=== PATIENT | male | born 1995 | race Two or more races ===

== ENCOUNTER 2020-07-18 20:47 | Emergency (ER) | payer OTHER, SELFPAY ==
[2020-07-18 21:31] VITALS: BP 123/73; PULSE 66; RESP 18; TEMP 37.3; O2SAT 99
[2020-07-18 22:25] VITALS: BMI 23.3
--- NOTE | 2020-07-18 23:08 | ED.URI ---
HPI - URI/Sore Throat General Chief Complaint: Upper Respiratory Symptoms Stated Complaint: Covid symptoms Time Seen by Provider: 07/18/20 20:57 Source: patient Mode of arrival: ambulatory Limitations: no limitations History of Present Illness HPI Narrative: 25-year-old male with past medical history of anxiety and depression, and tobacco dependence presents with several days of upper respiratory symptoms. Cough, congestion, headache, mild shortness of breath and malaise. Patient is requesting COVID-19 testing. MD elicited complaint: cough, rhinorrhea and nasal congestion Onset (ago): day(s) Consistency: constant Severity: mild Description of mucous: clear and watery Able to tolerate fluids by mouth: Yes Relieving factors: nothing Associated symptoms: myalgias, headache, nasal congestion and cough Treatments prior to arrival: none Related Data Allergies Allergy/AdvReac Type Severity Reaction Status Date / Time No Known Allergies Allergy Unverified 12/24/19 16:38 Review of Systems Review of Systems: Constitutional: Positive headache, positive malaise, No Fever, no Chills, no fatigue ENT/Mouth: No sore throat, positive runny nose Eyes: No Discharge Cardiovascular: No Chest Pain, No SOB Respiratory: Positive Cough, No Sputum, No Wheezing, positive Smoke Exposure, No Dyspnea Gastrointestinal: No Nausea, No Vomiting, No Diarrhea Genitourinary: no irregular bleeding, No Dysuria, No Urinary Frequency, No Hematuria, No Urinary Incontinence, No Urgency, No Flank Pain, Musculoskeletal: No Myalgia Skin: No rash Neuro: Positive Headache PMFSH Past Medical History Attestation statement: The following information was validated with the patient. Source: old records reviewed Medical History Anxiety and depression Insomnia Tobacco abuse Surgical History Hx of tonsillectomy Social History Social History Advance Directives: No Advance Directives Information Provided: No Physical Exam Vital Signs: Vital Signs: Last Vital Signs Temp 99.1 F 07/18/20 21:31 Pulse 66 07/18/20 21:31 Resp 18 07/18/20 21:31 BP 123/73 07/18/20 21:31 Pulse Ox 99 07/18/20 21:31 Body Mass Index 23.3 Appearance: Alert. Oriented X3. No acute distress. Eyes: Pupils equal, round and reactive to light. ENT: Pharynx normal. Neck: Normal inspection. Neck supple. CVS: Normal heart rate and rhythm. Pulses normal. Respiratory: No respiratory distress. Breath sounds normal. Abdomen: Soft and nontender. Skin: Skin warm and dry. Normal skin color. Normal skin turgor. Extremities: No lower extremity edema. Neuro: No motor deficit. No sensory deficit. Course Course Course Narrative: 25-year-old male with upper respiratory symptoms consistent with COVID-19 presents for testing. Patient positive for COVID-19. Plan of care is to discharge home with supportive measures. Patient verbalized understanding of and agrees to plan of care. MDM - URI/Sore Throat Differential Diagnosis Differential diagnosis: Likely upper respiratory infection, viral infection, bronchitis, influenza and pharyngitis Lab Data Attestation: I reviewed the patient's lab results. Labs: Lab Results 07/18/20 Range/Units 22:59 COVID-19 ([facility]) Positive A (Negative) COVID-19 Clin Com See Note Discharge Plan Discharge Clinical Impression: COVID-19 Patient Disposition: Home, Self-Care Instructions: COVID-19 (Coronavirus Disease 2019) (ED) Additional Instructions: You tested positive for COVID-19. Please maintain social isolation per State and Federal guidelines. It is your responsibility to maintain these guidelines. Please alternate Tylenol and Motrin as needed for pain management and fever control. If shortness of breath or symptoms worsen please return to the emergency department immediately for evaluation. Thank you for choosing this emergency department for evaluation. Please follow-up with primary care physician as needed. Return to the emergency department for any new, concerning, or worsening symptoms. Stand Alone Forms: Work/School Release Interventions: ED Discharge Assessment Last Done: 07/18/20 23:44 Discharge Date/Time: 07/18/20 23:36
[2020-07-18 23:18] LABS: COVID-19 Test Positive (Negative)
== END 2020-07-18 23:36 | disposition home or self-care (01) ==
PROVIDERS: Nurse Practitioner Family; Emergency Provider Emergency Medicine; PCP Internal Medicine
DX: U07.1 COVID-19 (principal); F17.210 Nicotine dependence, cigarettes, uncomplicated
CPT/HCPCS: 36415; 87635; 99283

== ENCOUNTER 2021-10-07 09:56 | Emergency (ER) | payer OTHER, SELFPAY ==
[2021-10-07 09:59] VITALS: BP 136/68; PULSE 100; RESP 19; TEMP 36.6; O2SAT 98; BMI 25.8
--- NOTE | 2021-10-07 10:39 | ED.GENADULT ---
HPI - General Adult General Chief complaint: Eye Problems Stated complaint: eye irritation/conjunctivitis? Time Seen by Provider: 10/07/21 10:39 Source: patient Mode of arrival: ambulatory Limitations: no limitations History of Present Illness HPI narrative: Patient is a 26 year old male presenting to the emergency department today with bilateral eye drainage. Patient states that starting yesterday, he noticed he was having greenish discharge coming from his eyes. Patient denies any dizziness, lightheadedness, abdominal pain, nausea, vomiting, fever, chills, blurry vision, double vision, loss of vision, chest pain, difficulty breathing, shortness of breath, back pain, night sweats, pain with urination, increased urinary frequency, increased urinary urgency, blood in his urine or stool, syncope or a near syncopal episode, recent trauma or falls, bowel incontinence, bladder incontinence, bowel retention, bladder retention, or any other complaints at this time. Onset (ago): day(s) (1) Location: eyes Radiation: non-radiation Severity: mild Severity scale (1-10): 1 Relieving factors: none Exacerbating factors: none Associated symptoms: denies other symptoms Treatments prior to arrival: none Related Data Previous Rx's Medication Instructions Recorded erythromycin 5 mg/gram (0.5 %) eye 0.5 inch ophthalmic (eye) QID 7 10/07/21 ointment days #3.5 grams Allergies Allergy/AdvReac Type Severity Reaction Status Date / Time No Known Allergies Allergy Unverified 12/24/19 16:38 Review of Systems Constitutional: Constitutional: Reports no additional constitutional complaints, Denies chills, Denies fever(s) and Denies night sweats Eyes: Eyes: Reports no additional eye complaints, Denies blurry vision, Denies change in vision, Denies diplopia, Reports eye discharge, Denies loss of vision and Denies eye pain ENT: Denies dizziness Cardiovascular: Cardiovascular: Reports no additional cardiovascular complaints, Denies chest pain, Denies lightheadedness, Denies Loss of Consciousness and Denies dyspnea Respiratory: Respiratory: Reports no additional respiratory complaints and Denies dyspnea Gastrointestinal: Gastrointestinal: Reports no additional gastrointestinal complaints, Denies abdominal pain, Denies melena, Denies hematochezia, Denies change in bowel habits and Denies change in stool character Genitourinary: Genitourinary: Reports no additional male genitourinary complaints, Denies hematuria, Denies oliguria, Denies difficulty urinating, Denies dysuria, Denies urinary frequency, Denies urinary hesitancy, Denies urinary incontinence and Denies urinary urgency Musculoskeletal: Musculoskeletal: Reports no additional musculoskeletal complaints, Denies numbness and Denies tingling Neurologic: Denies dizziness, Denies loss of vision, Denies numbness and Denies tingling Psychiatric: Psychiatric: Reports no additional psychiatric complaints Endocrine: Endocrine: Reports no additional endocrine complaints Hematologic/Lymphatic: Hematologic/Lymphatic: Reports no additional hematologic/lymphatic complaints Allergic/Immunologic: Allergic/Immunologic: Reports no additional allergic/immunologic complaints [facility] Past Medical History Attestation statement: The following information was validated with the patient. Source: old records reviewed Medical History Anxiety and depression Insomnia Tobacco abuse Surgical History Hx of tonsillectomy Social History Social History Alcohol intake: current Alcohol intake frequency: a few times a month Cigarettes Per Day: 3 Physical Exam ED Vital Signs: Vital Signs - 24 hr 10/07/21 09:59 Temperature 98 F Pulse Rate 100 Respiratory Rate 19 Blood Pressure 136/68 Pulse Oximetry 98 Oxygen Delivery Method Room Air BMI result Body Mass Index 25.8 Const General: cooperative, no acute distress, alert and awake Nutritional Appearance: well nourished Orientation/consciousness: patient oriented x3 Limitations: no limitations [facility] Head: Yes normal to inspection and Yes atraumatic Ears: hearing grossly normal bilaterally and external ears normal General nose exam: Normal external nose present, no nasal discharge noted and no epistaxis Face and sinus: Yes normal facial exam, No abrasion and No laceration Mouth: Normal oral and palatal mucosa present, no drooling and no muffled voice Eyes Periorbital: periorbital findings normal Eyelids: Yes eyelids normal Conjunctivae: conjunctival abnormal bilateral discharge Pupils: Equal, round and reactive pupils present EOM: EOMs intact bilaterally Neck Neck: Yes normal visual inspection, Yes full ROM and Yes no lymphadenopathy Chest Chest palpation & inspection: normal inspection of the chest Resp Effort & Inspection: normal respiratory effort and able to speak in complete sentences Auscultation: clear to auscultation bilaterally Cardio Rate: regular rate Rhythm: regular rhythm GI Inspection: Yes normal to inspection Neuro General: patient oriented x3 and moves all extremities Cranial nerves: Yes Equal, round and reactive pupils present Cognition (Neuro): normal cognition Motor exam (neuro): 5/5 motor strength present throughout Sensory Exam: Normal double simultaneous stimulation for sensation Coordination: [id number] test normal Extrem General: Yes normal to inspection, Yes full ROM and Yes capillary refill normal Psych Appearance: grossly normal Mental Status: mental status grossly normal Affect: normal affect Attitude: cooperative Thought process: Normal thought process present Thought content: Normal thought content present Insight: Good insight present (Psych) Medical Decision Making MDM Narrative Medical decision making narrative: Patient is a 26 year old male presenting to the emergency department today with eye discharge. Patient's physical exam showed yellow-green discharge from both eyes. I explained my physical exam findings to the patient. I answered all questions asked by the patient. I stressed the importance of the patient taking his medication as prescribed. I stressed the importance of the patient following up with his primary care provider. I stressed the importance of the patient returning to the emergency department immediately if his symptoms were to worsen or if he were to develop any dizziness, shortness of breath, difficulty breathing, chest pain, blurry vision, loss of vision, nausea, vomiting, abdominal pain, fever, chills, back pain, or any other complaints. Patient verbalized agreement and understanding with this treatment plan and discharge. Differential Diagnosis Differential Diagnosis: bacterial conjunctivitis Medical Records Medical records reviewed: Yes I reviewed the patient's medical records. Discharge Plan Discharge Clinical Impression: Bacterial conjunctivitis Patient Disposition: Home, Self-Care Instructions: Conjunctivitis (ED) Additional Instructions: Follow up with your primary care provider. Return to the emergency department immediately if your symptoms worsen or if you develop any dizziness, shortness of breath, difficulty breathing, chest pain, blurry vision, loss of vision, nausea, vomiting, abdominal pain, fever, chills, back pain, or any other complaints. Prescriptions: New erythromycin 5 mg/gram (0.5 %) ointment 0.5 inch ophthalmic (eye) QID 7 Days Qty: 3.5 0RF Referrals: Gagan Corbett MD [Primary Care Provider] - (Follow up with your PCP. ) Stand Alone Forms: Work/School Release Print Language: [place]
== END 2021-10-07 11:17 | disposition home or self-care (01) ==
PROVIDERS: Emergency Provider Emergency Medicine Emergency Medical Services; PCP Internal Medicine
DX: H10.89 Other conjunctivitis (principal)
CPT/HCPCS: 99282; 99283

== ENCOUNTER 2022-04-22 12:27 | Emergency (ER) | payer OTHER, SELFPAY ==
[2022-04-22 12:59] VITALS: BP 119/63; PULSE 67; RESP 16; TEMP 36.2; O2SAT 99; BMI 23.3
--- NOTE | 2022-04-22 13:02 | ED_ITS ---
HPI - General Adult General Chief complaint: Urogenital-Male <BREANNE Doyle - Last Filed: 04/22/22 18:25> Stated complaint: Genital discharge/itchiness <BREANNE Doyle - Last Filed: 04/22/22 18:25> Time Seen by Provider: 04/22/22 13:11 <BREANNE Doyle - Last Filed: 04/22/22 18:25> History of Present Illness HPI narrative: Patient complains of penile discharge for several days along with mild burning with urination, denies any sores or lesions no fever no vomiting no abdominal pain no rashes <BREANNE Vance - Last Filed: 04/28/22 13:53> Related Data Home medications: Previous Rx's Medication Instructions Recorded erythromycin 5 mg/gram (0.5 %) eye 0.5 inch ophthalmic (eye) QID 7 10/07/21 ointment days #3.5 grams doxycycline hyclate 100 mg capsule 100 mg PO BID 7 days #14 caps 04/22/22 <BREANNE Doyle - Last Filed: 04/22/22 18:25> Allergies/adverse reactions: Allergies Allergy/AdvReac Type Severity Reaction Status Date / Time No Known Allergies Allergy Verified 04/22/22 12:59 <BREANNE Doyle - Last Filed: 04/22/22 18:25> [facility] Past Medical History Source: nursing notes reviewed <BREANNE Vance - Last Filed: 04/28/22 13:53> Medical History: Medical History Anxiety and depression Insomnia Tobacco abuse <BREANNE Doyle - Last Filed: 04/22/22 18:25> Surgical History: Surgical History Hx of tonsillectomy <BREANNE Doyle - Last Filed: 04/22/22 18:25> Social History Social History: Social History Alcohol intake: current Alcohol intake frequency: a few times a month Cigarettes Per Day: 3 Advance Directives: No Advance Directives Information Provided: No <BREANNE Doyle - Last Filed: 04/22/22 18:25> Physical Exam ED Vital Signs: Vital Signs - 24 hr 04/22/22 12:59 Temperature 97.1 F Pulse Rate 67 Respiratory Rate 16 Blood Pressure 119/63 Pulse Oximetry 99 Oxygen Delivery Method Room Air BMI result Body Mass Index 23.3 <BREANNE Doyle - Last Filed: 04/22/22 18:25> Vital Signs - 24 hr 04/22/22 12:59 Temperature 97.1 F Pulse Rate 67 Respiratory Rate 16 Blood Pressure 119/63 Pulse Oximetry 99 Oxygen Delivery Method Room Air BMI result Body Mass Index 23.3 <BREANNE Vance - Last Filed: 04/28/22 13:53> Vital Signs - 24 hr 04/22/22 12:59 Temperature 97.1 F Pulse Rate 67 Respiratory Rate 16 Blood Pressure 119/63 Pulse Oximetry 99 Oxygen Delivery Method Room Air BMI result Body Mass Index 23.3 <BREANNE Willett - Last Filed: 04/24/22 14:36> General appearance no acute distress The eyes no redness or discharge The pharynx is clear no redness swelling or exudate Neck is supple Abdomen soft nontender Genital exam normal no lesions no discharge no testicular swelling no ulcerations Skin no rash <BREANNE Vance Last Filed: 04/28/22 13:53> Course Course Course Narrative: RME: 26 yold male presents to the ED for penile discharge descrbie as gree n and yellow. patient denies any abdominal pain, fever, chills, testicular pain, or penile lesions. uA and CTNG <BREANNE Doyle Last Filed: 04/22/22 18:25> RME: 26 yold male presents to the ED for penile discharge descrbie as green and yellow. patient denies any abdominal pain, fever, chills, testicular pain, or penile lesions. uA and CTNG Patient was treated Rocephin and Zithromax in the ER and was given a prescription for doxycycline as well for full treatment of likely gonorrhea or chlamydia, he is advised to informal partners refrain from sexual activity tool everyone is treated and and he is advised to follow with clinic to be evaluated for HIV and any further STD testing <BREANNE Vance Last Filed: 04/28/22 13:53> Reevaluation(s) Reevaluation #1: 04/24/22--patient positive for chlamydia, called and spoke with patient and made aware of results. <BREANNE Willett - Last Filed: 04/24/22 14:36> Medications Administered Discontinued Medications Generic Name Dose Route Start Last Admin Trade Name Jerelq PRN Reason Stop Dose Admin Azithromycin 1,000 mg 04/22/22 13:14 04/22/22 13:28 Azithromycin 500 Mg Tablet PO 04/22/22 13:15 1,000 mg ONCE ONE Administration Ceftriaxone Sodium 500 mg/ 0 mg 04/22/22 13:14 04/22/22 13:28 Lidocaine HCl 1 ml IM 04/22/22 13:15 1 kit ONCE ONE Administration <BREANNE Doyle - Last Filed: 04/22/22 18:25> Medications Administered Discontinued Medications Generic Name Dose Route Start Last Admin Trade Name Jerelq PRN Reason Stop Dose Admin Azithromycin 1,000 mg 04/22/22 13:14 04/22/22 13:28 Azithromycin 500 Mg Tablet PO 04/22/22 13:15 1,000 mg ONCE ONE Administration Ceftriaxone Sodium 500 mg/ 0 mg 04/22/22 13:14 04/22/22 13:28 Lidocaine HCl 1 ml IM 04/22/22 13:15 1 kit ONCE ONE Administration <BREANNE Vance - Last Filed: 04/28/22 13:53> Medications Administered Discontinued Medications Generic Name Dose Route Start Last Admin Trade Name Nila PRN Reason Stop Dose Admin Azithromycin 1,000 mg 04/22/22 13:14 04/22/22 13:28 Azithromycin 500 Mg Tablet PO 04/22/22 13:15 1,000 mg ONCE ONE Administration Ceftriaxone Sodium 500 mg/ 0 mg 04/22/22 13:14 04/22/22 13:28 Lidocaine HCl 1 ml IM 04/22/22 13:15 1 kit ONCE ONE Administration <BREANNE Willett - Last Filed: 04/24/22 14:36> Medical Decision Making Lab Data Labs: Lab Results 04/22/22 04/22/22 Range/Units 13:25 13:25 Urine Color Dark Yellow Urine Appearance Clear Urine pH 5.5 (5.0-9.0) Ur Specific [place] 1.020 (1.005-1.025) Urine Protein Negative (Neg-Trace) mg/dL Urine Glucose (UA) Negative (Negative) mg/dL Urine Ketones Negative (Negative) mg/dL Urine Blood Negative (Negative) Urine Nitrite Negative (Negative) Ur Leukocyte Esterase Small (1+) H (Negative) Urine RBC 0-2 (0-2) /HPF Urine WBC >50 H (0-5) /HPF Ur Squamous Epith Cells 0-2 (0-2) /HPF Urine Bacteria None Seen (None Seen) Hyaline Casts 0-2 (0-2) /LPF Chlam trachomat DNA PCR DETECTED A (Not Detect.) N.gonorrhoeae DNA (PCR) NOT DETECTED (Not Detect.) <BREANNE Doyle - Last Filed: 04/22/22 18:25> Lab Results 04/22/22 04/22/22 Range/Units 13:25 13:25 Urine Color Dark Yellow Urine Appearance Clear Urine pH 5.5 (5.0-9.0) Ur Specific [place] 1.020 (1.005-1.025) Urine Protein Negative (Neg-Trace) mg/dL Urine Glucose (UA) Negative (Negative) mg/dL Urine Ketones Negative (Negative) mg/dL Urine Blood Negative (Negative) Urine Nitrite Negative (Negative) Ur Leukocyte Esterase Small (1+) H (Negative) Urine RBC 0-2 (0-2) /HPF Urine WBC >50 H (0-5) /HPF Ur Squamous Epith Cells 0-2 (0-2) /HPF Urine Bacteria None Seen (None Seen) Hyaline Casts 0-2 (0-2) /LPF Chlam trachomat DNA PCR DETECTED A (Not Detect.) N.gonorrhoeae DNA (PCR) NOT DETECTED (Not Detect.) <BREANNE Vance - Last Filed: 04/28/22 13:53> Lab Results 04/22/22 04/22/22 Range/Units 13:25 13:25 Urine Color Dark Yellow Urine Appearance Clear Urine pH 5.5 (5.0-9.0) Ur Specific [place] 1.020 (1.005-1.025) Urine Protein Negative (Neg-Trace) mg/dL Urine Glucose (UA) Negative (Negative) mg/dL Urine Ketones Negative (Negative) mg/dL Urine Blood Negative (Negative) Urine Nitrite Negative (Negative) Ur Leukocyte Esterase Small (1+) H (Negative) Urine RBC 0-2 (0-2) /HPF Urine WBC >50 H (0-5) /HPF Ur Squamous Epith Cells 0-2 (0-2) /HPF Urine Bacteria None Seen (None Seen) Hyaline Casts 0-2 (0-2) /LPF Chlam trachomat DNA PCR DETECTED A (Not Detect.) N.gonorrhoeae DNA (PCR) NOT DETECTED (Not Detect.) <BREANNE Willett - Last Filed: 04/24/22 14:36> Discharge Plan Discharge Clinical Impression: Sexually transmitted disease <BREANNE Doyle - Last Filed: 04/22/22 18:25> Patient Disposition: Home, Self-Care <BREANNE Doyle - Last Filed: 04/22/22 18:25> Additional Instructions: We treated with Rocephin for possible gonorrhea You will take doxycycline for 1 week for possible chlamydia We will call you with the test results All partners should be treated for possible exposure, and no sexual activity until week after symptoms are gone and partners are treated and symptom free For further evaluation for possible STDs You can follow with [facility] <BREANNE Doyle - Last Filed: 04/22/22 18:25> Prescriptions: New doxycycline hyclate 100 mg capsule 100 mg PO BID 7 Days Qty: 14 0RF No Action erythromycin 5 mg/gram (0.5 %) ointment 0.5 inch ophthalmic (eye) QID 7 Days Qty: 3.5 0RF <BREANNE Doyle - Last Filed: 04/22/22 18:25> Interventions: ED Discharge Assessment Last Done: 04/22/22 14:34 <BREANNE Doyle - Last Filed: 04/22/22 18:25> Discharge Date/Time: 04/22/22 14:34 <BREANNE Doyle - Last Filed: 04/22/22 18:25>
[2022-04-22] MEDS: cefTRIAXone sodium 500 MG, Lidocaine HCl 1 % MPF 1 ML IM (13:28)
[2022-04-22] MEDS: Azithromycin 500 MG TABLET 1000 MG PO (13:28)
[2022-04-22 13:36] LABS: Appearance Urine Clear; Color Urine Dark Yellow; Glucose Urine UA Negative (Negative); Leukocyte Esterase Urine Small (1+) (Negative); Nitrite Urine Negative (Negative); PH 5.5 (5.0-9.0); UMIC TRIGGER UACC YES; Urine Blood Negative (Negative); Urine Ketones Negative (Negative); Urine Protein Negative (Neg-Trace)
[2022-04-22 13:38] LABS: Bacteria Urine None Seen (None Seen); Hyaline Casts Urine 0-2 /LPF (0-2); RBC Urine 0-2 /HPF (0-2); Squamous Epithelial Cell Urine 0-2 /HPF (0-2); UACC Culture Trigger YES; WBC Urine >50 /HPF (0-5)
[2022-04-22 15:12] LABS: CT PCR DETECTED (Not Detect.); NG PCR NOT DETECTED (Not Detect.)
== END 2022-04-22 14:34 | disposition home or self-care (01) ==
PROVIDERS: Physician Assistant; Emergency Provider Emergency Medicine; PCP Internal Medicine
DX: A56.8 Sexually transmitted chlamydial infection of other sites (principal); R30.0 Dysuria; Z79.899 Other long term (current) drug therapy
CPT/HCPCS: 0353U; 81001; 87086; 96374; 99282; 99284; J0696

== ENCOUNTER 2022-12-05 14:27 | Outpatient (AMB) | payer OTHER, SELFPAY ==
[2022-12-05 14:31] VITALS: BP 122/80; PULSE 64; O2SAT 100; BMI 25.3
--- NOTE | 2022-12-05 14:31 | A.OFFPC_ITS ---
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 Patient of Dr. Corbett, last visit 07/2020. Discharge diagnosis vasovagal syncope and head hematoma. Per ED notes, patient with no significant past medical history presented to the emergency department after syncopal episode. 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 Reports just prior to this he had a small cut on his knuckle. Denies chest pain, palpitations, shortness of breath, fever, chills, abdominal pain, vomiting. No family history of sudden cardiac arrhythmias. Reported a small hematoma on his posterior head, no complaints of neck pain. Point of care glucose was significant for hyperglycemia, patient did not eat breakfast that morning. EKG with sinus bradycardia, no other arrhythmia. Patient was discharged home and instructed to follow up with PCP. Glucose was 96. Today, patient denies any syncopal episodes, he reports when he did have posterior head hematoma he did have some headaches, this are improving. Denies shortness of breath or chest pain. Denies other concerns in the office. [facility] Medical History Anxiety and depression Insomnia Tobacco abuse Surgical History Hx of tonsillectomy Social History Housing: Apartment Alcohol intake: current Alcohol intake frequency: a few times a month Patient Tobacco Use Status: Never used Tobacco Cigarettes Per Day: 3 e-Cigarette/Vaping Use: Currently Using service: No Current occupational status: employed Cognitive needs: No Hearing needs: No Vision needs: No Questionnaire PHQ-9 Over the last 2 weeks, how often have you been bothered by any of the following problems? 1. Little interest or pleasure in doing things: not at all 2. Feeling down, depressed, or hopeless: not at all 3. Trouble falling or staying asleep, or sleeping too much: not at all 4. Feeling tired or having little energy: not at all 5. Poor appetite or overeating: not at all 6. Feeling bad about yourself - or that you are a failure or have let yourself or your family down: not at all 7. Trouble concentrating on things, such as reading the newspaper or watching television: not at all 8. Moving or speaking so slowly that other people could have noticed. Or the opposite - being so fidgety or restless that you have been moving around a lot more than usual: not at all 9. Thoughts that you would be better off or of hurting yourself in some way: not at all Total score: 0 Depression Screening Interpretation: Negative 25671 - PHQ-9 Billing: Yes Source: Developed by Drs. Carlitos Bro, Kylie Sterling, Matt Ruelas and colleagues, with an educational jewels from [employer]. Thrive Questionnaire Date Thrive assessed: 12/05/22 I am a: Patient What is your living situation today?: I have a steady place to live Within the past 12 months, did the food you bought not last and you didn't have the money to get more?: Never true Within the past 12 months, did you worry whether your food would run out before you got money to buy more?: Never true Do you have trouble paying for medicines?: No Do you have trouble getting transportation to medical appointments?: No Do you have trouble paying your heating and electricity bill?: No Do you have trouble taking care of your child, family member or friend?: No Do you have trouble with day-to-day activities such as bathing, preparing meals, shopping, managing finances, etc.?: No Are you currently unemployed and looking for a job?: No Are you interested in more education?: No Currently or been in a relationship where the following occur: no concerns repor noemí AUDIT C Alcohol Use Questionnaire (AUDIT-C) 1. How often do you have a drink containing alcohol?: Monthly or less 2. How many drinks containing alcohol do you have on a typical day when you are drinking?: 1 or 2 3. How often do you have six or more drinks on one occasion?: Never Total Score: 1 Score Reviewed/Action Taken: No CRUZ-7 AMB Questionnaire CRUZ-7 Date CRUZ - 7 assessed: 12/05/22 Feeling nervous, anxious, or on edge: 0 = Not at all Not being able to stop or control worryin = Not at all Worrying too much about different things: 0 = Not at all Trouble relaxin = Not at all Being so restless that it is hard to sit still: 0 = Not at all Becoming easily annoyed or irritable: 0 = Not at all Feeling afraid as if something awful might happen: 0 = Not at all Total CRUZ-7 score (0-4 normal; 5-9 mild; 10-14 moderate; 15-21 severe): 0 Source: Developed by Drs. Carlitos Bro, Kylie Sterling, Matt Ruelas and colleagues, with an educational jewels from [employer]. CRUZ-7 Assessment Billing CRUZ-7 Assessment Tool: CRUZ-7 Assessment 96153 Review of Systems Const Denies body aches, Denies chills, Denies fever(s) and Reports headache(s) (Intermittent) Eyes Denies change in vision ENT Denies dizziness, Denies otalgia, Reports headache(s) (Intermittent), Denies nasal discharge, Denies sinus pain and Denies sore throat Card Denies chest pain, Denies edema, Denies lightheadedness and Denies dyspnea Resp Denies cough, Denies dyspnea and Denies wheezing GI Denies abdominal pain Denies dysuria Musc Denies myalgias Skin/Breast Denies rash Neuro Denies dizziness and Reports headache(s) (Intermittent) Aller/Immun Denies wheezing Physical exam (Primary Care) Vital Signs: Last Vital Signs Pulse 64 12/05/22 14:31 BP 122/80 12/05/22 14:31 Pulse Ox 100 12/05/22 14:31 Oxygen Delivery Method Room Air 12/05/22 14:31 BMI result Body Mass Index 25.3 Tobacco/Smoking Status: Tobacco use Status Tobacco use date assessed 12/05/22 12/05/22 14:33 Patient Tobacco Use Status Never used Tobacco 12/05/22 14:33 e-Cigarette/Vaping Use Currently Using 12/05/22 14:39 PHQ-9: PHQ-9 Score PHQ-9: Total score 0 12/05/22 14:39 Depression Screening Interpretation: Negative Thrive Assessment: Date of Thrive Assessment Date Thrive assessed 12/05/22 12/05/22 14:33 Currently or been in a relationship where the following occur: no concerns reported Const General: cooperative and no acute distress Orientation/consciousness: patient oriented x3 HENMT Head: Yes normocephalic and Yes atraumatic Face and sinus: Yes sinuses nontender Mouth: oropharynx normal and moist mucous membranes Throat: Yes posterior oropharynx normal Eyes General: appearance normal, both eyes and all related structures Pupils: Equal, round and reactive pupils present EOM: EOMs intact bilaterally Neck Neck: Yes normal visual inspection, Yes full ROM and Yes no lymphadenopathy Resp Effort & Inspection: normal respiratory effort and able to speak in complete sentences Auscultation: clear to auscultation bilaterally, no crackles, no rales, no rhonchi and no wheezes Cardio Rate: regular rate Rhythm: regular rhythm Heart sounds: S1 normal heart sound present, S2 normal heart sound present and no murmurs GI Auscultation: normal bowel sounds Skin Other: Posterior head skin intact, nontender, no hematoma noted General skin exam: no rashes or lesions noted Neuro General: patient oriented x3 Cranial nerves: Yes Equal, round and reactive pupils present Gait exam (Neuro): Normal gait present Extrem General: Yes full ROM and No edema Assessment and Plan Assessment & Plan (1) Vasovagal syncope: Code(s): R55 - Syncope and collapse Plan: Patient denies any syncopal episodes since being discharged from emergency department 08/2022. Will order blood work to check for anemia also check sugar. Signs and symptoms reviewed when to notify provider or go to the emergency department. Patient agreed with the plan. Orders: Orders Comprehensive Met. Panel Today R55 - Syncope and collapse Complete Blood Count Auto Diff Today R55 - Syncope and collapse Coding Level of Care Code Est Pt Level 3 (87796) Diagnoses Vasovagal syncope R55 Additional Codes CRUZ-7 Assessment Billing - CRUZ-7 Assessment Tool: CRUZ-7 Assessment 46722 ([id number])
== END 2022-12-05 14:54 | disposition home or self-care (01) ==
PROVIDERS: PCP Internal Medicine; Visit Provider Nurse Practitioner Family
DX: R55 Syncope and collapse (principal)
CPT/HCPCS: 99213

== ENCOUNTER 2022-12-05 14:58 | Outpatient (REF) | payer OTHER, SELFPAY ==
[2022-12-05 15:08] LABS: MANUAL DIFF FLAG NO
[2022-12-05 15:43] LABS: Basophils Percent Auto 0.8 % (0-2); Eosinophils Absolute Auto 0.3 X10*3/uL (0.0-0.4); Eosinophils Percent Auto 6.4 % (0-4); Hematocrit 42.7 % (42.0-52.0); Hemoglobin 14.2 g/dl (14.0-18.0); Imm Gran Abs Auto 0.01 X10*3/uL (0.00-0.03); Imm Gran Pct Auto 0.2 % (0.0-0.4); Lymphocytes Absolute Auto 1.8 X10*3/uL (1.2-4.9); Mean Corpuscular HGB Conc 33.3 g/dl (31.0-36.0); Mean Corpuscular Hemoglobin 30.5 pg (27.0-33.0); Mean Corpuscular Volume 91.6 fL (80.0-98.0); Mean Platelet Volume 10.2 fL (9.4-12.4); Monocytes Absolute Auto 0.4 X10*3/uL (0.1-1.2); Monocytes Percent Auto 9.1 % (2-11); Neutrophils Absolute Auto 2.2 x10*3/uL (2.0-8.3); Neutrophils Percent Auto 45.5 % (45-73); Platelet Count 231 X10*3/uL (160-400); Red Blood Count 4.66 X10*6/uL (4.60-5.80); Red Cell Distribution Width 12.5 % (11.0-16.0); White Blood Count 4.8 X10*3/uL (4.8-10.8)
[2022-12-05 16:40] LABS: Alanine Aminotransferase 14 U/L (0-40); Albumin Level 4.2 g/dL (3.5-5.0); Alkaline Phosphatase 55 U/L (39-117); Anion Gap 11 (12-20); Aspartate Amino Transferase 14 U/L (5-37); Bilirubin Total 0.9 mg/dL (0.0-1.0); Blood Urea Nitrogen 12 mg/dL (9-16); Calcium 9.8 mg/dL (8.4-10.2); Carbon Dioxide 28 mmol/L (22-29); Chloride 104 mmol/L (96-108); Estimated Glomerular Filt Rate > 60; Glucose Random 74 mg/dL (60-115); Potassium 3.9 mmol/L (3.3-5.1); Sodium 139 mmol/L (135-145); Total Protein 6.7 g/dL (6.5-8.0)
== END 2022-12-05 14:59 | disposition home or self-care (01) ==
LOC: HO.LAB 14:58
PROVIDERS: PCP Internal Medicine; Visit Provider Nurse Practitioner Family
DX: R55 Syncope and collapse (principal)
CPT/HCPCS: 36415; 80053; 85025

== ENCOUNTER 2023-06-03 13:28 | Outpatient (AMB) | payer OTHER, SELFPAY ==
[2023-06-03 13:34] VITALS: BP 100/62; PULSE 72; O2SAT 98; BMI 24.6
--- NOTE | 2023-06-03 13:34 | MHC.PC.OV ---
Vital Signs 06/03/23 13:34 Height 5 ft 5 in Weight 148 lb BMI 24.6 BP 100/62 Blood Pressure Location Lt brachial Position Sitting Pulse 72 Pulse Source Pulse Oximeter Pulse Oximetry (%) 98 Oxygen Delivery Method Room Air Intake Visit Reasons: pe Prison Keeper Required: No Allergies No Known Allergies Allergy (Verified 06/03/23 13:34) Medication List - Last Reconciled 06/03/23 by Gagan Corbett MD No Known Home Meds Tobacco use date assessed: 06/03/23 Dental Screening Dental Screen Date: 06/03/23 Did you have a dental visit in the last 12 months?: No Did you have a dental problem in the last 6 months where you did not have access to dental care?: No HPI pe HPI Details 27-year-old male smoker with a history of anxiety depression coming in for physical exam. Patient was seen by the nurse practitioner in November 2022 after a fainting spell discharge diagnosis of vasovagal syncope with the head hematoma. vaping -complains of right hand numbness that radiates to the right arm and neck. [facility] Medical History Anxiety and depression Insomnia Tobacco abuse Surgical History Hx of tonsillectomy Social History (Updated 06/03/23 @ 14:15 by Gagan Corbett MD) Housing: Apartment Alcohol intake: current Alcohol intake frequency: a few times a month Comment: shot 1-2 a month Patient Tobacco Use Status: Never used Tobacco Years Smoked: VAPING e-Cigarette/Vaping Use: Currently Using service: No Current occupational status: employed Cognitive needs: No Hearing needs: No Vision needs: No Questionnaire PHQ-9 Over the last 2 weeks, how often have you been bothered by any of the following problems? 1. Little interest or pleasure in doing things: more than half the days 2. Feeling down, depressed, or hopeless: more than half the days 3. Trouble falling or staying asleep, or sleeping too much: several days 4. Feeling tired or having little energy: not at all 5. Poor appetite or overeating: several days 6. Feeling bad about yourself - or that you are a failure or have let yourself or your family down: not at all 7. Trouble concentrating on things, such as reading the newspaper or watching television: not at all 8. Moving or speaking so slowly that other people could have noticed. Or the opposite - being so fidgety or restless that you have been moving around a lot more than usual: not at all 9. Thoughts that you would be better off or of hurting yourself in some way: several days Total score: 7 Depression Screening Interpretation: Positive Depression Screening Done: Yes Source: Developed by Drs. Carlitos Bro, Kylie Sterling, Matt Ruelas and colleagues, with an educational jewels from [employer]. Thrive Questionnaire Date Thrive assessed: 06/03/23 I am a: Patient What is your living situation today?: I have a steady place to live Within the past 12 months, did the food you bought not last and you didn't have the money to get more?: Never true Within the past 12 months, did you worry whether your food would run out before you got money to buy more?: Never true Do you have trouble paying for medicines?: No Do you have trouble getting transportation to medical appointments?: No Do you have trouble paying your heating and electricity bill?: No Do you have trouble taking care of your child, family member or friend?: No Do you have trouble with day-to-day activities such as bathing, preparing meals, shopping, managing finances, etc.?: No Are you currently unemployed and looking for a job?: No Are you interested in more education?: No Please select the resources that you would like help with: None THRIVE Score: 0 AUDIT C Alcohol Use Questionnaire (AUDIT-C) 1. How often do you have a drink containing alcohol?: Monthly or less 2. How many drinks containing alcohol do you have on a typical day when you are drinking?: 1 or 2 3. How often do you have six or more drinks on one occasion?: Never Total Score: 1 Score Reviewed/Action Taken: No CRUZ-7 AMB Questionnaire CRUZ-7 Date CRUZ - 7 assessed: 06/03/23 Feeling nervous, anxious, or on edge: 2 = More than half the days Not being able to stop or control worryin = More than half the days Worrying too much about different things: 0 = Not at all Trouble relaxin = Not at all Being so restless that it is hard to sit still: 0 = Not at all Becoming easily annoyed or irritable: 0 = Not at all Feeling afraid as if something awful might happen: 0 = Not at all Total CRUZ-7 score (0-4 normal; 5-9 mild; 10-14 moderate; 15-21 severe): 4 Source: Developed by Drs. Carlitos Bro, Kylie Sterling, Matt Ruelas and colleagues, with an educational jewels from [employer]. Review of Systems Const Denies poor appetite and Denies weakness Eyes Denies no additional complaints ENT Reports Normal hearing present, Denies dizziness, Denies nasal congestion, Denies tinnitus and Denies sore throat Card Denies chest pain, Denies syncope, Denies rapid heart rate and Denies dyspnea Resp Denies cough and Denies dyspnea GI Denies change in stool character, Reports constipation, Denies diarrhea, Denies nausea and Denies vomiting Denies dysuria and Denies urinary frequency Neuro Reports Normal hearing present, Denies confusion, Denies dizziness, Denies syncope and Denies weakness Psych Denies confusion Physical exam (Primary Care) Vital Signs: Last Vital Signs Pulse 72 06/03/23 13:34 BP 100/62 06/03/23 13:34 Pulse Ox 98 06/03/23 13:34 Oxygen Delivery Method Room Air 06/03/23 13:34 BMI result Body Mass Index 24.6 Tobacco/Smoking Status: Tobacco use Status Tobacco use date assessed 06/03/23 06/03/23 13:35 Patient Tobacco Use Status Never used Tobacco 06/03/23 13:35 e-Cigarette/Vaping Use Currently Using 06/03/23 13:35 PHQ-9: PHQ-9 Score PHQ-9: Total score 7 06/03/23 13:54 Depression Screening Interpretation: Positive Thrive Assessment: Date of Thrive Assessment Date Thrive assessed 06/03/23 06/03/23 13:35 Const General: alert and awake; No confusion Orientation/consciousness: No confusion HENMT Head: Yes normocephalic Ears: external ears normal and TM's normal bilaterally Face and sinus: Yes normal facial exam Mouth: moist mucous membranes Throat: Yes tonsils normal Eyes Conjunctivae: conjunctivae normal Pupils: Equal, round and reactive pupils present and Pupil accommodation reflex normal Direct Ophthalmoscopy: normal light reflex Neck Neck: No lymphadenopathy Thyroid: Thyroid normal Chest Chest palpation & inspection: normal inspection of the chest Resp Effort & Inspection: normal respiratory effort and no audible wheezes Auscultation: clear to auscultation bilaterally, no crackles, no wheezes and lung sounds not diminished Cardio Rate: regular rate Rhythm: regular rhythm Peripheral pulses: radial pulses present and dorsalis pedis present GI Palpation (GI): no masses Auscultation: normal bowel sounds and normoactive bowel sounds Rectal Exam - Male: Yes deferred Skin General skin exam: no rashes or lesions noted Rashes: no rashes Neuro General: deep tendon reflexes 2+ bilaterally and No confusion Cranial nerves: Yes Equal, round and reactive pupils present, Yes Midline tongue present, Yes Normal hearing present and Yes Ability to bilaterally elevate shoulders present Cognition (Neuro): normal cognition Gait exam (Neuro): Normal gait present Motor exam (neuro): 5/5 motor strength present throughout Deep tendon reflexes (DTR's): Right brachioradialis reflex intensity grade: 2+, Left brachioradialis reflex intensity grade: 2+, Right patellar reflex intensity grade: 2+ and Left patellar reflex intensity grade: 2+ Extrem General: No edema Assessment and Plan Assessment & Plan (1) Annual physical exam: Code(s): Z00.00 - Encounter for general adult medical examination without abnormal findings (2) Tobacco abuse: Code(s): Z72.0 - Tobacco use Plan: Patient is strongly advised to stop smoking! (3) Syncope: Code(s): R55 - Syncope and collapse Plan: Keep well hydrated, eat healthy and keep active (4) Numbness of right hand: Code(s): R20.0 - Anesthesia of skin Orders: Orders NE electromyogram (EMG) Today R20.0 - Anesthesia of skin NE nerve conduction velocity Today R20.0 - Anesthesia of skin ECG 12 lead EKG Today R55 - Syncope and collapse Coding Level of Care Code Est Pt Prev Care 18-39y(40831) Diagnoses Annual physical exam Z00.00 Tobacco abuse Z72.0 Syncope R55 Numbness of right hand R20.0
== END 2023-06-03 14:34 | disposition home or self-care (01) ==
PROVIDERS: PCP Internal Medicine; Visit Provider Internal Medicine
DX: Z00.00 Encounter for general adult medical examination without abnormal findings (principal); Z72.0 Tobacco use; R55 Syncope and collapse; R20.0 Anesthesia of skin
CPT/HCPCS: 99395

== ENCOUNTER 2023-06-20 09:55 | Outpatient (REF) | payer OTHER, SELFPAY ==
--- NOTE | 2023-06-20 09:58 | EMG_ITS ---
Right median and ulnar motor and sensory studies were performed. Right radial sensory and median and lateral antecubital brachial sensory studies were performed and needle examination was performed. IMPRESSION: This is an unremarkable study with no evidence of neuropathy, plexopathy, or radiculopathy. MD KEMAR Beavers/MODL / [id number]
== END 2023-06-20 09:56 | disposition home or self-care (01) ==
LOC: HO.NEURO 09:55
PROVIDERS: PCP Internal Medicine; Visit Provider Internal Medicine
DX: R20.0 Anesthesia of skin (principal)
CPT/HCPCS: 95886; 95910

== ENCOUNTER 2024-01-24 10:38 | Outpatient (AMB) | payer OTHER, SELFPAY ==
--- NOTE | 2024-01-24 10:41 | A.OFFPC_ITS ---
Vital Signs 01/24/24 10:45 Height 5 ft 5 in Weight 142 lb 6 oz BMI 23.7 BP 118/78 Blood Pressure Location Lt brachial Position Sitting Pulse 70 Pulse Source Pulse Oximeter Pulse Oximetry (%) 99 Oxygen Delivery Method Room Air Intake Visit Reasons: Office visit Intake Note: The patient is here for a follow-up regarding the nerve conduction results of the right median and ulnar nerves. Post Acute Care Nurse Practitioner Required: No Accompanied by: Self / Same As Patient Allergies No Known Allergies Allergy (Verified 01/24/24 10:49) Tobacco use date assessed: 06/03/23 Dental Screening Dental Screen Date: 06/03/23 HPI Office visit HPI Details 28-year-old male smoker with with a hist ory of syncope coming in for follow-up. Last seen in May having physical at that time. Patient complained of numbness of the hand and a nerve conduction test was done negative results. vape still , nicotine and marijuana use. near syncope, relates changes in position BPPV PFSH Medical History Anxiety and depression Insomnia Tobacco abuse Surgical History Hx of tonsillectomy Social History Housing: Apartment Alcohol intake: current Alcohol intake frequency: a few times a month Comment: shot 1-2 a month Patient Tobacco Use Status: Never used Tobacco Years Smoked: VAPING e-Cigarette/Vaping Use: Currently Using service: No Current occupational status: employed Cognitive needs: No Hearing needs: No Vision needs: No Questionnaire Thrive Questionnaire Date Thrive assessed: 06/03/23 CRUZ-7 AMB Questionnaire CRUZ-7 Date CRUZ - 7 assessed: 06/03/23 Source: Developed by Drs. Carlitos Bro, Kylie Sterling, Matt Ruelas and colleagues, with an educational jewels from [employer]. Physical exam (Primary Care) Vital Signs: Last Vital Signs Pulse 70 01/24/24 10:45 BP 118/78 01/24/24 10:45 Pulse Ox 99 01/24/24 10:45 Oxygen Delivery Method Room Air 01/24/24 10:45 BMI result Body Mass Index 23.7 Tobacco/Smoking Status: Tobacco use Status Tobacco use date assessed 06/03/23 01/24/24 10:42 Patient Tobacco Use Status Never used Tobacco 01/24/24 10:42 e-Cigarette/Vaping Use Currently Using 01/24/24 10:42 Thrive Assessment: Date of Thrive Assessment Date Thrive assessed 06/03/23 01/24/24 10:42 Const General: alert; No acute distress Eyes Conjunctivae: conjunctivae normal Resp Auscultation: clear to auscultation bilaterally Cardio Rate: regular rate Rhythm: regular rhythm GI Inspection: Yes normal to inspection Extrem General: Yes normal to inspection and No edema Office Procedures Flu Questionnaire Does the patient have a severe egg allergy?: No Immunizations Fluarix Triv [id number] (PF) 45 mcg (15 mcg x 3)/0.5 mL IM syringe Performing Provider: Gagan Corbett MD [facility] [place] [facility] Documented (not given) by: TOYA Kramer on 01/24/24 10:48 Reason Not Given: Patient Refused Coding Level of Care Code Est Pt Level 4 (89875) Diagnoses Tobacco abuse Z72.0 Numbness of right hand R20.0 Benign paroxysmal positional vertigo, unspecified laterality H81.10 Laterality: unspecified laterality Assessment & Plan Assessment & Plan (1) Tobacco abuse: Code(s): Z72.0 - Tobacco use Category: Medical Plan: Patient is doing vaping. Patient is strongly advised to stop smoking (2) Numbness of right hand: Code(s): R20.0 - Anesthesia of skin Category: Medical Plan: Nerve test done revealing negative results. (3) BPV (benign positional vertigo): Code(s): H81.10 - Benign paroxysmal vertigo, unspecified ear Category: Medical Qualifiers: Laterality: unspecified laterality Qualified Code(s): H81.10 - Benign paroxysmal vertigo, unspecified ear Plan: keep well hydrated Orders: Orders Influenza [id number] Immunization Today Z23 - Encounter for immunization Free T4 (Free Thyroxine) 3 Months H81.10 - Benign paroxysmal vertigo, unspecified ear Thyroid Stimulating Hormone 3 Months H81.10 - Benign paroxysmal vertigo, unspecified ear Vitamin B12 and Folate 3 Months H81.10 - Benign paroxysmal vertigo, unspecified ear Complete Blood Count Auto Diff 3 Months H81.10 - Benign paroxysmal vertigo, unspecified ear Comprehensive Met. Panel 3 Months H81.10 - Benign paroxysmal vertigo, unspecified ear Lipid Panel 3 Months E78.00 - Pure hypercholesterolemia, unspecified, H81.10 - Benign paroxysmal vertigo, unspecified ear
[2024-01-24 10:45] VITALS: BP 118/78; PULSE 70; O2SAT 99; BMI 23.7
== END 2024-01-24 11:53 | disposition home or self-care (01) ==
PROVIDERS: PCP Internal Medicine; Visit Provider Internal Medicine
DX: Z72.0 Tobacco use (principal); R20.0 Anesthesia of skin; H81.10 Benign paroxysmal vertigo, unspecified ear; Z23 Encounter for immunization

== ENCOUNTER → 2024-01-24 10:38 | Outpatient (BNVA) | payer OTHER, SELFPAY | PROVIDERS: PCP Internal Medicine; Visit Provider Internal Medicine | DX: R20.0 Anesthesia of skin (principal); H81.10 Benign paroxysmal vertigo, unspecified ear; Z72.0 Tobacco use; Z28.21 Immunization not carried out because of patient refusal | CPT/HCPCS: 90471; 99212 ==

== ENCOUNTER 2024-02-14 10:17 | Emergency (ER) | payer OTHER, SELFPAY ==
[2024-02-14 10:19] VITALS: BP 129/72; PULSE 64; RESP 18; TEMP 36.3; O2SAT 99; BMI 23.7
--- NOTE | 2024-02-14 10:24 | ED_ITS ---
HPI - General Adult General Chief complaint: General Medical Stated complaint: rash on both sides Time Seen by Provider: 02/14/24 10:27 Source: patient Mode of arrival: ambulatory Limitations: no limitations History of Present Illness ED Provider: TERRY TOBIN PA-C HPI narrative: 28 year old male with pmhx significant for anxiety, depression, and vertigo presents to the ED today for evaluation of rash to torso and lower extremities x1 week. reports this initially began on his torso, now affect his extremities. states the rash was more prominent, now he can barely notice any skin lesions. admits the areas are still itchy. Has been applying calamine lotion with minimal improvement. No oral medications. 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 Denies new soaps/ lotions/ detergents. Denies new medications/ antibiotics. Denies new tick or insect bites. no recent travel. Denies fever, chills, sore throat, N/V, neck pain. Vaccinations UTD. Related Data Previous Rx's ?Medication ?Instructions ?Recorded cetirizine 10 mg tablet (Zyrtec) 10 mg PO DAILY PRN itching #10 tabs 02/14/24 diphenhydramine HCl 50 mg tablet 50 mg PO Q8H PRN itching #20 tabs 02/14/24 (Benadryl Allergy) prednisone 20 mg tablet 40 mg (2 x 20 mg) PO DAILY 4 days 02/14/24 #8 tabs Allergies Allergy/AdvReac Type Severity Reaction Status Date / Time No Known Allergies Allergy Verified 02/14/24 10:24 Review of Systems 2 Review of Systems: Constitutional: No fever, chills, fatigue, night sweats, weight changes ENT/Mouth: No ear pain, hearing loss, nasal congestion, sinus pain, rhinorrhea, sore throat Eyes: No eye pain, swelling, redness, vision changes, discharge Cardio: No chest pain, palpitations, YOUNG, orthopnea, peripheral edema Pulm: No SOB, cough, sputum, wheezing, dyspnea, hemoptysis GI: No nausea, vomiting, hematemesis, abdominal pain, diarrhea, constipation, hematochezia, melena : No irregular bleeding, dysuria, frequency, urgency, hesitancy, hematuria, flank pain, urinary flow changes, urinary incontinence or retention MSK: No back pain, neck pain, joint pain, myalgias Skin: No lesions, +rash Neuro: No weakness, numbness, paresthesias, LOC, dizziness, headache Psych: No anxiety/panic, depression, SI/HI, AH/VH All other systems reviewed and are negative. [facility] Past Medical History Attestation statement: The following information was validated with the patient. Source: old records reviewed and nursing notes reviewed Medical History Anxiety and depression Insomnia Tobacco abuse Surgical History Hx of tonsillectomy Social History Social History Housing: Apartment Alcohol intake: current Alcohol intake frequency: a few times a month Comment: shot 1-2 a month Patient Tobacco Use Status: Never used Tobacco Years Smoked: VAPING e-Cigarette/Vaping Use: Currently Using Advance Directives: No Advance Directives Information Provided: No Do you have a plan to hurt others: No Plan service: No Current occupational status: employed Cognitive needs: No Hearing needs: No Vision needs: No Physical Exam ED Vital Signs: Vital Signs - 24 hr 02/14/24 12:49 02/14/24 13:06 Temperature 97.7 F 97.7 F Pulse Rate 51 51 Respiratory Rate 16 16 Blood Pressure 120/63 120/63 Pulse Oximetry 100 100 Oxygen Delivery Method Room Air Room Air BMI result Body Mass Index 23.7 vital signs stable General: Well appearing, in no acute distress. Skin: +no obvious rash/ erythema to torso, head, extremities. no excoriations. no involvement of palms, soles, webbed spaces. No target lesions. Non dermatomal pattern. No pustules. Head: Normocephalic, atraumatic. EENT: Hearing is intact b/l. Conjunctiva clear. PERRLA. EOM intact. Moist mucous membranes.? Neck: Supple without LAD Cardiac: Chest wall symmetric. RRR Lungs: airway patent. Normal respiratory effort without accessory muscle use. CTA bilaterally Ext: Upper and lower extremities atraumatic, without tenderness, deformity, swelling. Neuro: AOx3. Normal speech.Ambulating with steady gait. Psych: Appropriate mood and affect. Responds appropriately to questions. Course Course Course Narrative: 1244 -- CBC without leukocytosis or left shift. No anemia. H&H stable. Chronically elevated eosinophils. ESR, CRP WNL. Chemistry without acute electrolyte abnormality requiring intervention. No DIANN. Normal liver function. Negative for COVID, flu, RSV, strep throat. > concern for contact dermatitis although etiology of rash is not clear at this point. Treated with prednisone, Pepcid and Benadryl with improvement. Will send home with prednisone, Benadryl and Zyrtec. Dermatology an pensions retirement plan specialist referral provided. Patient has remained stable throughout ED visit today. Discussed worrisome signs and symptoms and when to return to the ED. All questions answered at this time. Patient is agreeable with disposition and stable for discharge. Medications Administered Discontinued Medications Generic Name Dose Route Start Last Admin Trade Name Freq PRN Reason Stop Dose Admin Diphenhydramine HCl 25 mg 02/14/24 12:03 02/14/24 12:11 Diphenhydramine Hcl 25 Mg Capsule PO 02/14/24 12:04 25 mg ONCE ONE Administration Famotidine 20 mg 02/14/24 12:03 02/14/24 12:11 Famotidine 20 Mg Tablet PO 02/14/24 12:04 20 mg ONCE ONE Administration Prednisone 40 mg 02/14/24 12:17 02/14/24 12:22 Prednisone 20 Mg Tablet PO 02/14/24 12:18 40 mg ONCE ONE Administration Medical Decision Making Medical Decision Making MDM Narrative: 28 year old male with pmhx significant for anxiety, depression, and vertigo presents to the ED today for evaluation of rash to torso and lower extremities x1 week. Rash is most consistent with contact dermatitis. Vital signs stable. He is afebrile, not hypoxic. He is nontoxic appearing in no acute distress. Lying comfortably on the exam bed. Airways patent. Lungs clear. Please refer to exam portion of this note for findings. Differential diagnosis includes contact/atopic/eczematous dermatitis, psoriasis, viral exanthem. History and exam findings not consistent with lyme/tick bourne illness, herpes zoster/simplex, scabies, HFM,? dangerous etiologies of rash such as SJS/TEN, or secondary dangerous causes such as petechial rashes from thrombocytopenia or rickettsial infections.? Plan at this time is to obtain basic labs, viral/strep swabs, treat symptomatically and provide patient with derm/ pensions retirement plan specialist referral. Differential Diagnosis Differential Diagnoses: The differential diagnosis associated with the presentation includes as above Admission/Observation not indicated Lab Data MDM Lab Attestation statement: I reviewed the patient's lab results. as above. 02/14/24 11:14 02/14/24 11:14 Labs: Lab Results 02/14/24 Range/Units 11:14 WBC 4.9 (4.8-10.8) X10*3/uL RBC 4.98 (4.60-5.80) X10*6/uL Hgb 15.4 (14.0-18.0) g/dl Hct 44.8 (42.0-52.0) % MCV 90.0 (80.0-98.0) fL MCH 30.9 (27.0-33.0) pg MCHC 34.4 (31.0-36.0) g/dl RDW 12.8 (11.0-16.0) % Plt Count 222 (160-400) X10*3/uL MPV 9.8 (9.4-12.4) fL Immature Gran % (Auto) 0.2 (0.0-0.4) % Neut % (Auto) 58.2 (45-73) % Lymph % (Auto) 27.9 (20-40) % [place] % (Auto) 7.4 (2-11) % Eos % (Auto) 5.7 H (0-4) % Baso % (Auto) 0.6 (0-2) % Lymph # (Auto) 1.4 (1.2-4.9) X10*3/uL [place] # (Auto) 0.4 (0.1-1.2) X10*3/uL Eos # (Auto) 0.3 (0.0-0.4) X10*3/uL Baso # (Auto) 0.0 (0.0-0.2) X10*3/uL Abs Immat Gran (auto) 0.01 (0.00-0.03) X10*3/uL Absolute Neuts (auto) 2.8 (2.0-8.3) x10*3/uL Absolute Nucleated RBC 0.000 (0.0-0.012) X10*3/uL Nucleated RBC % (auto) 0.0 (0.0-0.2) /100WBC ESR 1 (0-15) MM/HR Hold Purple Top SEE NOTE Sodium 140 (135-145) mmol/L Potassium 4.2 (3.3-5.1) mmol/L Chloride 106 (96-108) mmol/L Carbon Dioxide 29 (22-29) mmol/L Anion Gap 9 L (12-20) BUN 17 H (9-16) mg/dL Creatinine 0.99 (0.5-1.4) mg/dL Estim Creat Clear Calc 99.3 Estimated GFR > 60 Random Glucose 84 (60-115) mg/dL Calcium 9.1 D (8.4-10.2) mg/dL Magnesium 1.9 (1.6-2.6) mg/dL Total Bilirubin 0.6 (0.0-1.0) mg/dL AST 22 (5-37) U/L ALT 16 (0-40) U/L Alkaline Phosphatase 55 (39-117) U/L C-Reactive Protein < 0.10 (< or = 0.50) mg/dL Total Protein 6.8 (6.5-8.0) g/dL Albumin 4.2 (3.5-5.0) g/dL Influenza Type A (PCR) NEGATIVE (Negative) Influenza Type B (PCR) NEGATIVE (Negative) RSV RNA Qual (PCR) NEGATIVE (Negative) SARS-CoV-2 RNA (RT-PCR) NEGATIVE (Negative) S. pyogenes GrpA [place] Negative (Negative) Critical Care Time Critical Care Time Critical Care Time: No Discharge Plan Discharge Clinical Impression: Dermatitis Patient Disposition: Home, Self-Care Instructions: Dermatitis (ED) Additional Instructions: You were evaluated in the ED today for rash. Your blood work is reassuring. You tested negative for covid, flu, rsv, and strep throat. The etiology of your rash is unclear. A four day course of Prednisone has been sent to your pharmacy. Please take this over the next 4 days starting tomorrow. You already received a dose of steroids in the ED today. I have also sent benadryl and zyrtec to help with itching. Please follow-up with your primary care provider regarding your visit today. You have also been provided with a referral to a bulb farmworker for follow-up. Please call him to make a an appointment. They will not call you Return to the Emergency Department if you experience worsening or spreading rash, worsening or uncontrolled pain, fevers 100.4?F or greater, recurrent vomiting, shortness of breath, discharge from your rash, or any other concerning symptoms. In the case of an emergency call 911. Prescriptions: New prednisone 20 mg tablet 40 mg PO DAILY 4 Days Qty: 8 0RF cetirizine [Zyrtec] 10 mg tablet 10 mg PO DAILY PRN (Reason: itching) Qty: 10 0RF Benadryl Allergy 50 mg tablet 50 mg PO Q8H PRN (Reason: itching) Qty: 20 0RF Referrals: Desean Kathleen MD [Physician] - 5 days (body rash) Janelle Lopez PA [Physician Sane Rn] - 5 days (body rash) Gagan Corbett MD [Primary Care Provider] - Interventions: ED Discharge Assessment Last Done: 02/14/24 13:06 Discharge Date/Time: 02/14/24 13:06 Print Language: Irish
[2024-02-14 11:06] VITALS: BP 113/59; PULSE 59; RESP 16; TEMP 36.5; O2SAT 98
[2024-02-14 11:23] LABS: Basophils Percent Auto 0.6 % (0-2); Eosinophils Absolute Auto 0.3 X10*3/uL (0.0-0.4); Eosinophils Percent Auto 5.7 % (0-4); Hematocrit 44.8 % (42.0-52.0); Hemoglobin 15.4 g/dl (14.0-18.0); Imm Gran Abs Auto 0.01 X10*3/uL (0.00-0.03); Imm Gran Pct Auto 0.2 % (0.0-0.4); Lymphocytes Absolute Auto 1.4 X10*3/uL (1.2-4.9); Lymphocytes Percent Auto 27.9 % (20-40); MANUAL DIFF FLAG NO; Mean Corpuscular HGB Conc 34.4 g/dl (31.0-36.0); Mean Corpuscular Hemoglobin 30.9 pg (27.0-33.0); Mean Platelet Volume 9.8 fL (9.4-12.4); Monocytes Absolute Auto 0.4 X10*3/uL (0.1-1.2); Monocytes Percent Auto 7.4 % (2-11); Neutrophils Absolute Auto 2.8 x10*3/uL (2.0-8.3); Neutrophils Percent Auto 58.2 % (45-73); Platelet Count 222 X10*3/uL (160-400); Red Blood Count 4.98 X10*6/uL (4.60-5.80); Red Cell Distribution Width 12.8 % (11.0-16.0); White Blood Count 4.9 X10*3/uL (4.8-10.8)
[2024-02-14 11:32] LABS: IDNOW Serial# 08D9AD1C; Strep A Nucleic Acid Negative (Negative)
[2024-02-14 11:40] LABS: Alanine Aminotransferase 16 U/L (0-40); Albumin Level 4.2 g/dL (3.5-5.0); Alkaline Phosphatase 55 U/L (39-117); Anion Gap 9 (12-20); Aspartate Amino Transferase 22 U/L (5-37); Bilirubin Total 0.6 mg/dL (0.0-1.0); Blood Urea Nitrogen 17 mg/dL (9-16); C Reactive Protein < 0.10 mg/dL (< or = 0.50); Calcium 9.1 mg/dL (8.4-10.2); Carbon Dioxide 29 mmol/L (22-29); Chloride 106 mmol/L (96-108); Creatinine Clr Calc Pharmacy 99.3; Estimated Glomerular Filt Rate > 60; Glucose Random 84 mg/dL (60-115); Magnesium 1.9 mg/dL (1.6-2.6); Potassium 4.2 mmol/L (3.3-5.1); Sodium 140 mmol/L (135-145); Total Protein 6.8 g/dL (6.5-8.0)
[2024-02-14 12:02] LABS: Erythrocyte Sedimentation Rate 1 MM/HR (0-15); Influenza A PCR NEGATIVE (Negative); Influenza B PCR NEGATIVE (Negative); Resp Syncy Virus RNA Qual PCR NEGATIVE (Negative); SARS COV2 PCR INHOUSE NEGATIVE (Negative)
[2024-02-14] MEDS: Famotidine 20 MG TABLET PO (12:11)
[2024-02-14] MEDS: diphenhydrAMINE HCL 25 MG CAPSULE PO (12:11)
[2024-02-14] MEDS: predniSONE 20 MG TABLET 40 MG PO (12:22)
[2024-02-14 12:49] VITALS: BP 120/63; PULSE 51; RESP 16; TEMP 36.5; O2SAT 100
[2024-02-14 13:06] VITALS: BP 120/63; PULSE 51; RESP 16; TEMP 36.5; O2SAT 100
== END 2024-02-14 13:06 | disposition home or self-care (01) ==
PROVIDERS: Physician Assistant Medical; Emergency Provider Emergency Medicine; PCP Internal Medicine
DX: L30.9 Dermatitis, unspecified (principal); R21 Rash and other nonspecific skin eruption; Z03.818 Encounter for observation for suspected exposure to other biological agents ruled out
CPT/HCPCS: 0241U; 36415; 80053; 83735; 85025; 85652; 86140; 87651; 99283

== ENCOUNTER 2024-06-08 11:29 | Outpatient (AMB) | payer OTHER, SELFPAY ==
[2024-06-08 11:44] VITALS: BP 122/76; PULSE 80; O2SAT 98; BMI 25.2
--- NOTE | 2024-06-08 11:44 | MHC.PC.OV ---
Vital Signs 06/08/24 11:44 Height 5 ft 6 in Weight 156 lb BMI 25.2 BP 122/76 Blood Pressure Location Lt brachial Position Sitting Pulse 80 Pulse Source Pulse Oximeter Pulse Oximetry (%) 98 Oxygen Delivery Method Room Air Intake Visit Reasons: annual exam Allergies No Known Allergies Allergy (Verified 06/08/24 11:44) Medication List - Last Reconciled 06/08/24 by Gagan Corbett MD cetirizine (Zyrtec) 10 mg PO DAILY PRN fluconazole 200 mg orally once a week x 4 weeks; Tobacco use date assessed: 06/08/24 Dental Screening Dental Screen Date: 06/08/24 Did you have a dental visit in the last 12 months?: No Did you have a dental problem in the last 6 months where you did not have access to dental care?: No Was dental information given to patient?: No FOR[facility]LY [facility], [facility] Medical History Anxiety and depression Insomnia Tobacco abuse Surgical History Hx of tonsillectomy Family History (Updated 06/08/24 @ 11:55 by Nisreen Carver CMA) Mother Mental health disorder Sister No problems noted. Sister Mental health disorder Daughter No problems noted. 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 1. Little interest or pleasure in doing things: several days 2. Feeling down, depressed, or hopeless: more than half the days 3. Trouble falling or staying asleep, or sleeping too much: nearly every day 4. Feeling tired or having little energy: more than half the days 5. Poor appetite or overeating: several days 6. Feeling bad about yourself - or that you are a failure or have let yourself or your family down: more than half the days 7. Trouble concentrating on things, such as reading the newspaper or watching television: more than half the days 8. Moving or speaking so slowly that other people could have noticed. Or the opposite - being so fidgety or restless that you have been moving around a lot more than usual: more than half the days 9. Thoughts that you would be better off or of hurting yourself in some way: more than half the days Total score: 17 Depression Screening Interpretation: Positive Depression Screening Done: Yes 00641 - PHQ-9 Billing: Yes Source: Developed by Drs. Carlitos Bro, Kylie Sterling, Matt Ruelas and colleagues, with an educational jewels from [employer]. Thrive Questionnaire Date Thrive assessed: 06/08/24 I am a: Patient What is your living situation today?: I do not have a steady places to live I am temporarily staying with others Within the past 12 months, did the food you bought not last and you didn't have the money to get more?: Sometimes True Within the past 12 months, did you worry whether your food would run out before you got money to buy more?: Sometimes True Do you have trouble paying for medicines?: No Do you have trouble getting transportation to medical appointments?: No Do you have trouble paying your heating and electricity bill?: I choose not to answer this question Do you have trouble taking care of your child, family member or friend?: No Do you have trouble with day-to-day activities such as bathing, preparing meals, shopping, managing finances, etc.?: No Are you currently unemployed and looking for a job?: No Are you interested in more education?: Yes Please select the resources that you would like help with: Housing/Skilled Nursing, Daily support and Education Currently or been in a relationship where the following occur: Controlled Emotionally THRIVE Score: 4 AUDIT C Alcohol Use Questionnaire (AUDIT-C) 1. How often do you have a drink containing alcohol?: Monthly or less 2. How many drinks containing alcohol do you have on a typical day when you are drinking?: 1 or 2 3. How often do you have six or more drinks on one occasion?: Less than monthly Total Score: 2 CRUZ-7 AMB Questionnaire CRUZ-7 Date CRUZ - 7 assessed: 06/08/24 Feeling nervous, anxious, or on edge: 1 = Several days Not being able to stop or control worryin = More than half the days Worrying too much about different things: 1 = Several days Trouble relaxin = Several days Being so restless that it is hard to sit still: 1 = Several days Becoming easily annoyed or irritable: 1 = Several days Feeling afraid as if something awful might happen: 2 = More than half the days Total CRUZ-7 score (0-4 normal; 5-9 mild; 10-14 moderate; 15-21 severe): 9 Source: Developed by Drs. Carlitos Bro, Kylie Sterling, Matt Ruelas and colleagues, with an educational jewels from [employer]. CRUZ-7 Assessment Billing CRUZ-7 Assessment Tool: CRUZ-7 Assessment 72606 Review of Systems Const Denies poor appetite and Denies weakness Eyes Denies no additional complaints ENT Reports Normal hearing present, Denies dizziness, Denies nasal congestion, Denies tinnitus and Denies sore throat Card Denies chest pain, Denies syncope, Denies rapid heart rate and Denies dyspnea Resp Denies cough and Denies dyspnea GI Denies change in stool character, Reports constipation, Denies diarrhea, Denies nausea and Denies vomiting Denies dysuria and Denies urinary frequency Neuro Reports Normal hearing present, Denies confusion, Denies dizziness, Denies syncope and Denies weakness Psych Denies confusion Physical exam (Primary Care) Vital Signs: Last Vital Signs Pulse 80 06/08/24 11:44 BP 122/76 06/08/24 11:44 Pulse Ox 98 06/08/24 11:44 Oxygen Delivery Method Room Air 06/08/24 11:44 BMI result Body Mass Index 25.2 Tobacco/Smoking Status: Tobacco use Status Tobacco use date assessed 06/08/24 06/08/24 11:47 Patient Tobacco Use Status Former Tobacco user 06/08/24 12:11 Tobacco use type Cigarette 06/08/24 12:11 e-Cigarette/Vaping Use Currently Using 06/08/24 12:11 PHQ-9: PHQ-9 Score PHQ-9: Total score 17 06/08/24 12:02 Depression Screening Interpretation: Positive Thrive Assessment: Date of Thrive Assessment Date Thrive assessed 06/08/24 06/08/24 11:56 Currently or been in a relationship where the following occur: Controlled Emotionally Const General: alert and awake; No confusion Orientation/consciousness: No confusion HENMT Head: Yes normocephalic Ears: external ears normal and TM's normal bilaterally Face and sinus: Yes normal facial exam Mouth: moist mucous membranes Throat: Yes tonsils normal Eyes Conjunctivae: conjunctivae normal Pupils: Equal, round and reactive pupils present and Pupil accommodation reflex normal Direct Ophthalmoscopy: normal light reflex Neck Neck: No lymphadenopathy Thyroid: Thyroid normal Chest Chest palpation & inspection: normal inspection of the chest Resp Effort & Inspection: normal respiratory effort and no audible wheezes Auscultation: clear to auscultation bilaterally, no crackles, no wheezes and lung sounds not diminished Cardio Rate: regular rate Rhythm: regular rhythm Peripheral pulses: radial pulses present and dorsalis pedis present GI Palpation (GI): no masses Auscultation: normal bowel sounds and normoactive bowel sounds Rectal Exam - Male: Yes deferred Skin General skin exam: no rashes or lesions noted Rashes: no rashes Neuro General: deep tendon reflexes 2+ bilaterally and No confusion Cranial nerves: Yes Equal, round and reactive pupils present, Yes Midline tongue present, Yes Normal hearing present and Yes Ability to bilaterally elevate shoulders present Cognition (Neuro): normal cognition Gait exam (Neuro): Normal gait present Motor exam (neuro): 5/5 motor strength present throughout Deep tendon reflexes (DTR's): Right brachioradialis reflex intensity grade: 2+, Left brachioradialis reflex intensity grade: 2+, Right patellar reflex intensity grade: 2+ and Left patellar reflex intensity grade: 2+ Extrem General: No edema Coding Level of Care Code Est Pt Prev Care [id number]([id number]) Diagnoses Annual physical exam Z00.00 Tobacco abuse Z72.0 Generalized anxiety disorder F41.1 Tinea corporis B35.4 Hearing difficulty H91.90 Additional Codes CRUZ-7 Assessment Billing - CRUZ-7 Assessment Tool: CRUZ-7 Assessment 19696 ([id number]) PHQ-9 - 62573 - PHQ-9 Billing: Yes ([id number]) Assessment & Plan Assessment & Plan (1) Annual physical exam: Code(s): Z00.00 - Encounter for general adult medical examination without abnormal findings Category: Medical Plan: Patient is advised to eat healthy, keep well hydrated, keep active and have adequate sleep. (2) Tobacco abuse: Code(s): Z72.0 - Tobacco use Category: Medical Plan: Patient is strongly advised to stop smoking (3) Generalized anxiety disorder: Code(s): F41.1 - Generalized anxiety disorder Category: Medical (4) Tinea corporis: Code(s): B35.4 - Tinea corporis Category: Medical (5) Hearing difficulty: Code(s): H91.90 - Unspecified hearing loss, unspecified ear Category: Medical Plan History of Present Illness The patient is a 28-year-old male presenting for an annual physical examination. He has a history of generalized anxiety disorder and was seen for a recent rash that was treated at an emergency department in February with prednisone, Benadryl, and Zyrtec. The rash affected large surface areas of his back and thighs and was itchy, leading to intermittent itching beyond the last treatment. The past medical history is significant for generalized anxiety disorder, with antihistamine medications being used for allergy symptoms as needed. He denies any recent diagnoses or operations. The patient's family history is negative for cardiac or oncological diseases. He presently uses vapes containing nicotine and smokes cannabis, consuming alcohol infrequently. He has complained of muscular chest pain linked to work conditions, but there are no symptoms indicating cardiovascular disease. Health Maintenance - Discussed benefits of regular hydration and a balanced diet to foster health. - Encouraged physical activity to maintain well-being. - Recommended annual influenza vaccination; administered a dose during the visit. - Promoted awareness regarding risks associated with nicotine and cannabis smoking, especially concerning lung health. - Approved an upcoming ophthalmological examination. - Suggested periodic blood tests for ongoing health monitoring. 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 - Substance Use: Engages in vaping with nicotine and smokes cannabis; little alcohol consumption, estimated at one or two shots monthly. - Exercise: Work provides ample physical activity, including lifting kegs. - Safety Precautions: Uses a lifting brace for back support. - Nutrition: No specific dietary details provided, but hydration and diet were discussed. Review of Systems - General: Denies fever or weight gain/loss beyond reported fluctuations. - Dermatologic: Reports transient pruritus; denies current rash presence. - Neurologic: Occasionally feels dizziness; chronic nausea since high school; denies any changes in hearing. - Respiratory: Denies shortness of breath. - Cardiovascular: Reports chest muscle pains at work. - Gastrointestinal: Denies heartburn, regular bowel activity; sometimes wakes to urinate once at night. Physical Exam General: Cooperative, healthy appearing, comfortable, no acute distress and well developed Orientation: Patient oriented x3 Limitations: No limitations Head: Normal to inspection Ears: Hearing grossly normal bilaterally, some earwax present but not covering Nose: Normal external nose present Face and sinus: Normal facial exam Eyes: Appearance normal, both eyes and all related structures Neck: Normal visual inspection and Yes full ROM Respiratory: Normal respiratory effort and able to speak in complete sentences. Clear to auscultation bilaterally Cardiovascular: Regular rate and rhythm. Normal S1 and S2 GI: Normal to inspection. Soft to palpation and nontender Skin: No rashes or lesions noted, previously treated for a rash with prednisone, Zyrtec, and Benadryl Neuro: Patient oriented x3 Extremities: Normal to inspection, no swelling noted in ankles Results Plan Treatment for the suspected fungal rash involves topical and oral antifungal medications. Continuation of health maintenance, including laboratory work, is suggested as ongoing monitoring for general wellness. The patient received counseling on risks related to smoking and vaping, encouraging a healthier lifestyle and offering precautionary guidance. The flu vaccination was provided. Monitoring of hydration, nutrition, and exercise is advised. Patient was informed and verbally consented to the use of an ambient scribe for clinic note documentation during this visit. Discussion Notes I discussed the potential fungal nature of the patient's rash, offering topical and oral antifungal therapy. We conversed about health maintenance emphasizing the importance of hydration, proper diet, and physical activity. Risks associated with nicotine vaping and smoking cannabis were covered, with explanations of respiratory health impacts. We talked about the upcoming flu season, and the patient agreed to receive the influenza vaccine during this visit. I recommended periodic blood work and follow-up for general wellness and advised a forthcoming hearing test. I provided anticipatory guidance on lifestyle, safety measures at work, and future monitoring of his condition. Patient Instructions - Use the prescribed topical and oral antifungal medications as directed for four weeks. - Maintain adequate hydration and a balanced diet. - Stay physically active and exercise caution during heavy lifting at work. - Reduce nicotine and cannabis smoking due to potential health risks. - Attend the scheduled hearing test to evaluate any issues. - Get regular check-ups and blood tests for overall health monitoring. - Follow up with healthcare provider if the rash returns or you notice any unusual symptoms. - Keep the scheduled eye exam appointment. Orders: Referrals Speech and Hearing Referral H91.90 - Unspecified hearing loss, unspecified ear Medications: New fluconazole 200 mg orally once a week x 4 weeks; 4 tabs 0RF B35.4 - Tinea corporis
== END 2024-06-08 12:25 | disposition home or self-care (01) ==
PROVIDERS: PCP Internal Medicine; Visit Provider Internal Medicine
DX: Z00.00 Encounter for general adult medical examination without abnormal findings (principal); Z72.0 Tobacco use; F41.1 Generalized anxiety disorder; B35.4 Tinea corporis; H91.90 Unspecified hearing loss, unspecified ear; Z23 Encounter for immunization

== ENCOUNTER → 2024-06-08 11:29 | Outpatient (BNVA) | payer OTHER, SELFPAY | PROVIDERS: PCP Internal Medicine; Visit Provider Internal Medicine | DX: Z00.00 Encounter for general adult medical examination without abnormal findings (principal); Z23 Encounter for immunization; F41.1 Generalized anxiety disorder; B35.4 Tinea corporis; H91.90 Unspecified hearing loss, unspecified ear; Z72.0 Tobacco use | CPT/HCPCS: 90471; 90656; 96127; 99395 ==

== ENCOUNTER 2024-07-01 08:45 | Outpatient (REF) | payer OTHER, SELFPAY | END 2024-07-01 08:46 | disposition home or self-care (01) | LOC: HO.SH 08:45 | PROVIDERS: Visit Provider Internal Medicine | DX: Z01.118 Encounter for examination of ears and hearing with other abnormal findings (principal); H93.293 Other abnormal auditory perceptions, bilateral | CPT/HCPCS: 92557 ==

== ENCOUNTER 2024-11-26 10:19 | Outpatient (REF) | payer OTHER, SELFPAY ==
--- NOTE | ~2024-11-26 | XR_ITS ---
EXAMINATIONS: 1. XR FOOT 1-2 VIEWS LEFT 2. XR ANKLE 1-2 VIEWS LEFT CLINICAL INFORMATION: M79.672 - Pain in left foot COMPARISON: Radiographs of the left ankle on September 11, 2017. TECHNIQUE: AP, lateral, and mortise views of the left ankle. AP, lateral, and oblique views of the left foot. FINDINGS: Normal alignment. No fracture or destructive bone lesion. The joint spaces are preserved. Unremarkable overlying soft tissues. No radiopaque foreign body. XR/XR ankle LT 2V IMPRESSION: Normal left ankle. Normal left foot. Electronically signed by: Harley Meehan MD 11/26/2024 12:39 PM EDT
--- NOTE | ~2024-11-26 | XR_ITS ---
EXAMINATIONS: 1. XR FOOT 1-2 VIEWS LEFT 2. XR ANKLE 1-2 VIEWS LEFT CLINICAL INFORMATION: M79.672 - Pain in left foot COMPARISON: Radiographs of the left ankle on September 11, 2017. TECHNIQUE: AP, lateral, and mortise views of the left ankle. AP, lateral, and oblique views of the left foot. FINDINGS: Normal alignment. No fracture or destructive bone lesion. The joint spaces are preserved. Unremarkable overlying soft tissues. No radiopaque foreign body. XR/XR foot LT 2V IMPRESSION: Normal left ankle. Normal left foot. Electronically signed by: Harley Meehan MD 11/26/2024 12:39 PM EDT
== END 2024-11-26 10:20 | disposition home or self-care (01) ==
LOC: HO.XRAY 10:19
PROVIDERS: PCP Internal Medicine
DX: M79.672 Pain in left foot (principal); M25.572 Pain in left ankle and joints of left foot; S80.212D Abrasion, left knee, subsequent encounter; S60.512D Abrasion of left hand, subsequent encounter; S50.812D Abrasion of left forearm, subsequent encounter
CPT/HCPCS: 73600; 73620; 96127; 99212

== ENCOUNTER 2024-11-26 10:19 | Outpatient (AMB) | payer OTHER, SELFPAY ==
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
[2024-11-26 10:39] VITALS: BP 100/58; PULSE 85; O2SAT 98; BMI 26.0
== END 2024-11-26 11:15 | disposition home or self-care (01) ==
LOC: HO.HMCH 10:20
PROVIDERS: PCP Internal Medicine
DX: M79.672 Pain in left foot (principal); M25.572 Pain in left ankle and joints of left foot; S50.819A Abrasion of unspecified forearm, initial encounter; S80.212A Abrasion, left knee, initial encounter; S60.512A Abrasion of left hand, initial encounter

== ENCOUNTER → 2024-11-26 11:30 | Outpatient (BNV) | payer OTHER, SELFPAY | PROVIDERS: PCP Internal Medicine; Visit Provider Radiology Body Imaging | DX: M79.672 Pain in left foot (principal) | CPT/HCPCS: 73600; 73620 ==

== ENCOUNTER 2024-12-16 15:32 | Outpatient (AMB) | payer OTHER, SELFPAY ==
[2024-12-16 15:44] VITALS: BP 122/60; PULSE 81; O2SAT 98; BMI 26.5
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
== END 2024-12-16 16:34 | disposition home or self-care (01) ==
LOC: HO.HMCH 15:33
PROVIDERS: PCP Internal Medicine
DX: S50.819A Abrasion of unspecified forearm, initial encounter (principal); S60.512A Abrasion of left hand, initial encounter; S80.212A Abrasion, left knee, initial encounter

== ENCOUNTER → 2024-12-16 15:32 | Outpatient (BNVA) | payer OTHER, SELFPAY | PROVIDERS: PCP Internal Medicine | DX: S50.812A Abrasion of left forearm, initial encounter (principal); S80.212A Abrasion, left knee, initial encounter; S60.512A Abrasion of left hand, initial encounter; B35.4 Tinea corporis; V89.2XXA Person injured in unspecified motor-vehicle accident, traffic, initial encounter; Y93.9 Activity, unspecified; Y92.9 Unspecified place or not applicable; Y99.9 Unspecified external cause status | CPT/HCPCS: 99212 ==

== ENCOUNTER 2025-01-05 11:18 | Outpatient (AMB) | payer OTHER, SELFPAY ==
[2025-01-05 11:22] VITALS: BP 100/62; PULSE 69; RESP 18; TEMP 36.3; O2SAT 96; BMI 26.4
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
== END 2025-01-05 11:49 | disposition home or self-care (01) ==
LOC: HO.HMCH 11:19
PROVIDERS: PCP Internal Medicine
DX: S50.819A Abrasion of unspecified forearm, initial encounter (principal); S60.512A Abrasion of left hand, initial encounter; S80.212A Abrasion, left knee, initial encounter

== ENCOUNTER → 2025-01-05 11:18 | Outpatient (BNVA) | payer OTHER, SELFPAY | PROVIDERS: PCP Internal Medicine | DX: S50.812D Abrasion of left forearm, subsequent encounter (principal); S80.212D Abrasion, left knee, subsequent encounter; S60.512D Abrasion of left hand, subsequent encounter; V89.2XXD Person injured in unspecified motor-vehicle accident, traffic, subsequent encounter | CPT/HCPCS: 99212 ==